=== PATIENT | female | born 1990 | race Two or more races ===

== ENCOUNTER 2019-01-04 10:00 | Inpatient (IN) | payer OTHER ==
[2019-01-04 13:00] VITALS: BMI 25.4
[2019-01-04 13:06] LABS: EOS % 0.6 % (0-4.5); HEMATOCRIT 34.6 % (32.4-45.2); HEMOGLOBIN 11.5 GM/dL (10.7-15.3); LYMPH % 22.3 % (8-40); MCH 28.1 pg (25.7-33.7); MCHC 33.1 g/dl (32.0-36.0); MEAN CELL VOLUME 84.9 fl (80-96); MEAN PLT VOLUME 8.6 fl (7.5-11.1); MONO % 9.9 % (3.8-10.2); NEUT % 66.2 % (42.8-82.8); PLATELET COUNT 190 K/MM3 (134-434); RBC 4.08 M/mm3 (3.60-5.2); RDW 21.4 % (11.6-15.6); WHITE BLOOD COUNT 6.7 K/mm3 (4.0-10.0)
[2019-01-04 13:15] LABS: INR 0.93 (0.83-1.09)
[2019-01-04 13:18] LABS: ACTIVATED PTT 25.6 SECONDS (25.2-36.5)
[2019-01-04 13:29] LABS: BLOOD UREA NITROGEN 6.1 mg/dL (7-18); CALCIUM 8.4 mg/dL (8.5-10.1); CREATININE 0.5 mg/dL (0.55-1.3); POTASSIUM 3.4 mmol/L (3.5-5.1)
--- NOTE | 2019-01-04 21:17 | HP ---
Past Medical History - Primary Care Physician PCP:: Corinne Poe - Admission Chief Complaint: Postdates. 41 weeks History of Present Illness: 28yo EDC 12/30/18 EDC 40.6 week with hx of short cervix and fibroids admitted for induction of labor fetus with echogenic bowel and preicardial effusion improved History Source: Patient Limitations to Obtaining History: No Limitations - Past Medical History ...: 1 ...Para: 0 ...LMP: 03/25/18 ... Weeks Gestation by Dates: 40.6 ...EDC by Dates: 12/30/18 ...EDC by Sono: 12/30/18 - Past Surgical History Past Surgical History: Yes: None Hx Myomectomy: No Hx Transabdominal Cerclage: No - Smoking History Smoking history: Never smoked Have you smoked in the past 12 months: No - Alcohol/Substance Use Hx Alcohol Use: Yes (1 drink/day pre-) History of Substance Use: reports: None - Social History Usual Living Arrangement: Yes: With Parent History of Recent Travel: No Home Medications - Allergies Allergies/Adverse Reactions: Allergies Allergy/AdvReac Type Severity Reaction Status Date / Time No Known Allergies Allergy Verified 01/04/19 11:31 - Home Medications Home Medications: Ambulatory Orders Ferrous Sulfate [Iron] 325 mg PO BID 01/04/19 Pnv No.95/Ferrous Fum/Folic AC [ Vitamin Tablet] 1 each PO DAILY Review of Systems - Review of Systems Constitutional: reports: No Symptoms Eyes: reports: No Symptoms HENT: reports: No Symptoms Neck: reports: No Symptoms Cardiovascular: reports: No Symptoms Respiratory: reports: No Symptoms Gastrointestinal: reports: No Symptoms Genitourinary: reports: No Symptoms Breasts: reports: No Symptoms Reported Musculoskeletal: reports: No Symptoms Integumentary: reports: No Symptoms Neurological: reports: No Symptoms Endocrine: reports: No Symptoms Hematology/Lymphatic: reports: No Symptoms Psychiatric: reports: No Symptoms Physical Exam - Maternity Vital Signs: Vital Signs Temperature 98.6 F 01/04/19 14:00 Pulse Rate 80 01/04/19 20:00 Respiratory Rate 18 01/04/19 20:00 Blood Pressure 114/72 01/04/19 20:00 O2 Sat by Pulse Oximetry (%) Constitutional: Yes: Well Nourished, No Distress Neck: Yes: WNL Cardiovascular: Yes: WNL, Regular Rate and Rhythm Lungs: Clear to auscultation - Abdominal Exam/OB Fundal Height: 41 Number of Fetuses: Single Presentation: Vertex Contractions: Yes Regularity: Irregular Category: I Accelerations: Non-Uniform Decelerations: None - Vaginal Exam/OB Dilatation (cm): 1-2 cm Effacement (%): 80 Amniotic Membrane Status: Intact (cervidil placed) Presentation: Vertex/Position - Physical Exam Musculoskeletal: Yes: WNL Extremities: Yes: WNL Edema: No Integumentary: Yes: WNL Psychiatric: Yes: WNL, Alert, Oriented - Labs Lab Results: CBC, BMP 01/04/19 12:47 01/04/19 12:47 Problem List - Problems (1) Post-dates Code(s): O48.0 - POST-TERM (2) 41 weeks gestation of Code(s): Z3A.41 - 41 WEEKS GESTATION OF Assessment/Plan IUP at 41 weeks Postdates GBS neg Cat Cervidil induction Plan Cervidil IVF
[2019-01-04] MEDS ORDERED: BUTORPHANOL TARTRATE 1 MG/ML VIAL IVPB ONE (21:18)
[2019-01-04] MEDS ORDERED: PROMETHAZINE HCL 25 MG/1 ML VIAL IVPUSH ONE (21:18)
[2019-01-04] MEDS ORDERED: DINOPROSTONE 10 MG VAGINAL SUPPOSITORY VG ONE (21:20)
[2019-01-05] MEDS: ELECTROLYTE-148 SOLN 1,000 ML IV SCH ×2 (01:40→07:20)
[2019-01-05] MEDS ORDERED: NALOXONE HCL 0.4 MG/ML VIAL IVPUSH PRN (03:18)
[2019-01-05] MEDS ORDERED: FENTANYL/BUPIVACAINE/NS/PF - PCEA - 50 ML DISP.SYRIN EP ONE ×2 (03:20→07:09)
[2019-01-05] MEDS ORDERED: BUPIVACAINE HCL/PF 2.5 MG/ML - 30 ML VIAL IJ ONE (03:21)
[2019-01-05] MEDS ORDERED: LIDO 2%/EPI 1:200000 PRESRVFRE (20 ML SDVIAL) ONE (03:21)
[2019-01-05] MEDS ORDERED: FENTANYL/BUPIVACAINE/NS/PF - PCEA - 50 ML DISP.SYRIN EP SCH (03:30)
--- NOTE | 2019-01-05 07:04 | PN ---
Ante-Partal Exam - Subjective Subjective: Pt comfortable with epidural Vital Signs: Vital Signs Temperature 97.9 F 01/05/19 06:00 Pulse Rate 79 01/05/19 06:45 Respiratory Rate 20 01/05/19 06:45 Blood Pressure 124/63 01/05/19 06:45 O2 Sat by Pulse Oximetry (%) 100 01/05/19 06:45 Bleeding: No Headache: No Visual changes: No Right upper quadrant pain: No - Contractions Contractions: Yes Monitor Mode: External - Exam during Labor Variability: Moderate Heart Rate Location: [facility] Category: I Monitor Accelerations: Present Monitor Decelerations: None Exam: Vaginal Dilatation (cm): 9 Amniotic Membrane Status: Intact Presentation: Vertex Station: -1 - Intrapartum Hemorrhage Risk Risk Score: 0 Risk Level: Low Risk - Assessment/Plan Assessment/Plan: SP epidural Cervidil induction Plan anticipate vaginal delivery
[2019-01-05] MEDS ORDERED: LIDOCAINE HCL 1% PRESERVATIVE FREE - 30ML VIAL ONE (08:26)
[2019-01-05] MEDS ORDERED: OXYTOCIN 20 UNITS in 0.9% NS 20 UNIT/1,000 ML INFUS.BAG IV ONE (08:26)
--- NOTE | 2019-01-05 08:39 | PN ---
Ante-Partal Exam - Subjective Subjective: Pt comfortable. Vital Signs: Vital Signs Temperature 98.6 F 01/05/19 07:00 Pulse Rate 77 01/05/19 07:45 Respiratory Rate 18 01/05/19 07:45 Blood Pressure 126/75 01/05/19 07:45 O2 Sat by Pulse Oximetry (%) 98 01/05/19 07:45 Bleeding: No Headache: No Visual changes: No Right upper quadrant pain: No - Contractions Contractions: Yes Regularity: Regular Intensity: Mod/Strong - Exam during Labor Category: I Monitor Decelerations: None Exam: Vaginal Dilatation (cm): 10 Effacement (%): 100 Amniotic Membrane Status: Bulging (and AROm for clear upon examination) Presentation: Vertex Station: -1 - Assessment/Plan Assessment/Plan: To begin pushing
[2019-01-05] MEDS ORDERED: OXYTOCIN 30 UNITS in 0.9% NS 30 UNIT/500 ML INFUS.BAG IVPB ONE (08:50)
[2019-01-05] MEDS: OXYTOCIN 20 UNITS in 0.9% NS 20 UNIT/1,000 ML INFUS.BAG IV SCH (10:26)
[2019-01-05] MEDS ORDERED: BENZOCAINE 20% 57 GM BOTTLE TP PRN (10:45)
[2019-01-05] MEDS ORDERED: METHYLERGONOVINE MALEATE 0.2 MG/1 ML AMP IM PRN (10:45)
[2019-01-05] MEDS ORDERED: BENZOCAINE 28 GM HEMORRHOIDAL OINTMENT TP PRN (10:45)
[2019-01-05] MEDS ORDERED: BISACODYL 10 MG SUPP.RECT RC PRN (10:45)
[2019-01-05] MEDS ORDERED: WITCH HAZEL 50% (TUCKS) 40 PAD/JAR PAD TP PRN (10:45)
--- NOTE | 2019-01-05 10:45 | PN ---
Delivery - Delivery Vaginal Delivery: No Problems Type of Anesthesia: Epidural Episiotomy/Laceration: 1st degree EBL (cc): 300 Delivery, Single - Stages of Labor Date of Delivery: 01/05/19 Time of Delivery: 10: Date Placenta Delivered: 01/05/19 Time Placenta Delivered: Placenta: Yes: Spontaneous - Condition of Puppy Trainer/Kelp Or Seagrass Gatherer Present: Yes Name: Keisha Vale Infant Gender: Male Position: Right, OA - 1 Minute Total Score: 7 5 Minutes Total Score: 9 - Feeding Plan Initial Plan: Elected not to breastfeed exclusively throughout hospitalization Remarks - Remarks Remarks: normal from JAZMÍN position across 1st degree laceration posterior shoulder/hand (right side) compound presentation noted, posterior arm delivered first anterior shoulder (left) delivered with ease along with remainder of nasopharynx bulb suctioned upon delivery baby appeared to have low tone and no spontaneous cry noted 3vc noted, clamped and cut baby taken to warmer for assessment immediately neonatology called in for assessment, neopuff and tactile stimulation apgars 7/9 1st degree vaginal laceration noted, repaired with 2-0 chromic in usual fashion mom stable sponge needle and instrument count correct mom stable baby to well baby nursery
[2019-01-05] MEDS: FERROUS SO4 325 MG TABLET (FP) PO SCH ×2 (12:14→17:37)
[2019-01-05] MEDS ORDERED: OXYTOCIN 20 UNITS in 0.9% NS 20 UNIT/1,000 ML INFUS.BAG IV SCH (12:15)
[2019-01-05] MEDS ORDERED: ONDANSETRON 4 MG/2 ML VIAL IVPB ONE (15:30)
[2019-01-05] MEDS ORDERED: ONDANSETRON 4 MG/2 ML VIAL ONE (15:34)
[2019-01-05] MEDS ORDERED: ONDANSETRON 4 MG/2 ML VIAL IVPUSH PRN (15:53)
[2019-01-05] MEDS: IBUPROFEN 600 MG TABLET (FP) PO PRN (19:33)
[2019-01-05] MEDS: ACETAMINOPHEN 325 MG TABLET (FP) PO PRN (19:33)
--- NOTE | 2019-01-06 08:10 | PN ---
Post Progress Note - Subjective Subjective: Pt seen, evaluated and doing well. OOB, voiding, passing flatus, tolerating diet. VB scant Post Day: 1 Type of Delivery: Vital Signs: Vital Signs Temperature 97.8 F 01/06/19 06:00 Pulse Rate 71 01/06/19 06:00 Respiratory Rate 18 01/06/19 06:00 Blood Pressure 126/65 01/06/19 06:00 O2 Sat by Pulse Oximetry (%) 100 01/05/19 11:30 Uterus: Yes: Fundus Firm Abdomen/GI: Yes: Abdomen soft Lochia: Yes: Rubra Lochia, amount: Small Extremities: Yes: Calves non-tender Perineum: Yes: Laceration (1st degree, in tact/well approximated) Activity: Ambulating - Labs Labs: CBC WBC 6.7 K/mm3 (4.0-10.0) 01/04/19 12:47 RBC 4.08 M/mm3 (3.60-5.2) 01/04/19 12:47 Hgb 11.5 GM/dL (10.7-15.3) 01/04/19 12:47 Hct 34.6 % (32.4-45.2) 01/04/19 12:47 MCV 84.9 fl (80-96) 01/04/19 12:47 MCH 28.1 pg (25.7-33.7) 01/04/19 12:47 MCHC 33.1 g/dl (32.0-36.0) 01/04/19 12:47 RDW 21.4 % (11.6-15.6) H 01/04/19 12:47 Plt Count 190 K/MM3 (134-434) 01/04/19 12:47 MPV 8.6 fl (7.5-11.1) 01/04/19 12:47 Absolute Neuts (auto) 4.4 K/mm3 (1.5-8.0) 01/04/19 12:47 Neutrophils % 66.2 % (42.8-82.8) 01/04/19 12:47 Lymphocytes % 22.3 % (8-40) 01/04/19 12:47 Monocytes % 9.9 % (3.8-10.2) 01/04/19 12:47 Eosinophils % 0.6 % (0-4.5) 01/04/19 12:47 Basophils % 1.0 % (0-2.0) 01/04/19 12:47 Nucleated RBC % 0 % (0-0) 01/04/19 12:47 Problem List - Problems (1) Vaginal delivery Code(s): O80 - ENCOUNTER FOR FULL-TERM UNCOMPLICATED DELIVERY Assessment/Plan regular diet po pain meds cbc pending routine care
[2019-01-06 08:16] LABS: BASO % 0.7 % (0-2.0); EOS % 0.5 % (0-4.5); HEMOGLOBIN 9.8 GM/dL (10.7-15.3); LYMPH % 23.3 % (8-40); MCH 27.9 pg (25.7-33.7); MCHC 32.8 g/dl (32.0-36.0); MEAN PLT VOLUME 8.7 fl (7.5-11.1); MONO % 7.1 % (3.8-10.2); NEUT % 68.4 % (42.8-82.8); PLATELET COUNT 168 K/MM3 (134-434); RBC 3.53 M/mm3 (3.60-5.2); RDW 21.2 % (11.6-15.6); WHITE BLOOD COUNT 13.1 K/mm3 (4.0-10.0)
[2019-01-06] MEDS: FERROUS SO4 325 MG TABLET (FP) PO SCH ×3 (09:22→18:26)
[2019-01-06] MEDS: IBUPROFEN 600 MG TABLET (FP) PO PRN (18:27)
[2019-01-06] MEDS: ACETAMINOPHEN 325 MG TABLET (FP) PO PRN (18:28)
[2019-01-06] MEDS: OXYTOCIN 20 UNITS in 0.9% NS 20 UNIT/1,000 ML INFUS.BAG IV SCH (20:37)
[2019-01-06] MEDS ORDERED: SENNOSIDES/DOCUSATE COMBO (SENNA PLUS) TABLET (UD) PO PRN (22:00)
--- NOTE | 2019-01-07 06:56 | DS ---
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[employer] SPECIALIST Vital Signs: Vital Signs Temperature 98.1 F 01/06/19 10:52 Pulse Rate 99 H 01/06/19 10:52 Respiratory Rate 18 01/06/19 10:52 Blood Pressure 104/69 01/06/19 10:52 O2 Sat by Pulse Oximetry (%) 100 01/05/19 11:30 Constitutional: Yes: Well Nourished Eyes: Yes: Conjunctiva Clear HENT: Yes: Atraumatic Neck: Yes: Supple Cardiovascular: Yes: Regular Rate and Rhythm Respiratory: Yes: Regular Gastrointestinal: Yes: Normal Bowel Sounds ...Rectal Exam: Yes: WNL Renal/: Yes: WNL External Genitalia: Yes: Normal Vaginal Exam: Yes: Normal Cervix: Yes: Normal Uterus: Yes: Firm ....Post : Yes: Uterus firm, Moderate lochia serosa Breast(s): Yes: WNL Musculoskeletal: Yes: WNL Extremities: Yes: WNL Integumentary: Yes: WNL Neurological: Yes: Alert, Oriented ...Motor Strength: WNL Psychiatric: Yes: Alert, Oriented Labs: CBC, BMP 01/06/19 07:45 01/04/19 12:47 Delivery - Delivery Vaginal Delivery: No Problems Type of Anesthesia: Epidural Episiotomy/Laceration: Vaginal Extension/lac, 1st degree EBL (cc): 300 Delivery, Single - Stages of Labor Date 1st Stage Initiatied: 01/05/19 Time 1st Stage Initiated: 01:30 Date 2nd Stage Initiated: 01/05/19 Time 2nd Stage Initiated: 08:15 Date of Delivery: 01/05/19 Time of Delivery: 10:23 Time Placenta Delivered: 10:26 Placenta: Yes: Spontaneous - Condition of Broomcorn Sorter/Hydraulic Lift Driver Present: Yes Name: Keisha Vale Gender: Male Weight: 8 lb 1 oz Position: Right, OA Total Hours ROM (Hrs/Mins): 2hrs/11mins - 1 Minute Total Score: 7 5 Minutes Total Score: 9 - Feeding Plan Initial Plan: Elected not to breastfeed exclusively throughout hospitalization Discharge Summary Reason For Visit: LABOR ADMISSION Current Active Problems 41 weeks gestation of (Acute) Post-dates (Acute) Vaginal delivery (Acute) Procedures: Principal: Normal vaginal delivery Hospital Course: Routine care Condition: Good - Instructions Diet, Activity, Other Instructions: Regular diet No douching, no sexual intercourse x 6 weeks F/u with MD in 6 weeks - Home Medications Comprehensive Discharge Medication List: Ambulatory Orders Ferrous Sulfate [Iron] 325 mg PO BID 01/04/19 Pnv No.95/Ferrous Fum/Folic AC [ Vitamin Tablet] 1 each PO DAILY
[2019-01-07 07:55] VITALS: BP 120/84; PULSE 64; TEMP 98.6
[2019-01-07] MEDS: FERROUS SO4 325 MG TABLET (FP) PO SCH ×2 (08:08→12:00)
== END 2019-01-07 11:55 | disposition home or self-care (01) | DRG 560 ==
LOC: JDEL 10:00 → JLDR 11:15 → J3W 01-05 11:50
PROVIDERS: ADMIT Obstetrics & Gynecology; ATTEND Obstetrics & Gynecology
PROC: 10E0XZZ Delivery of Products of Conception, External Approach (ICD-10-PCS; principal; 2019-01-05)
PROC: 3E0P7VZ Introduction of Hormone into Female Reproductive, Via Natural or Artificial Opening (ICD-10-PCS; 2019-01-05)
PROC: 3E0R3BZ Introduction of Anesthetic Agent into Spinal Canal, Percutaneous Approach (ICD-10-PCS; 2019-01-05)
PROC: 0HQ9XZZ Repair Perineum Skin, External Approach (ICD-10-PCS; 2019-01-05)
DX: O48.0 Post-term pregnancy (principal); O26.879 Cervical shortening, unspecified trimester; O34.13 Maternal care for benign tumor of corpus uteri, third trimester; D25.9 Leiomyoma of uterus, unspecified; O70.0 First degree perineal laceration during delivery; O32.6XX0 Maternal care for compound presentation, not applicable or unspecified; Z3A.40 40 weeks gestation of pregnancy; Z37.0 Single live birth
CPT/HCPCS: 36415; 59025; 59409; 80048; 85025; 85610; 85730; 86593; 86850; 86900; 86901